=== PATIENT | male | born 1955 | race Caucasian/White ===

== ENCOUNTER 2017-05-14 09:57 | Inpatient (IN) | payer OTHER ==
[~2017-05-14] VITALS: Ht 172.7 cm; Wt 190.2 kg
[~2017-05-14 09:57] MED LIST: CORDARONE200 MG/TAB PO; COUMADIN 5MG5 MG/TAB PO; GLUCOPHAGE500 MG/TAB PO; LASIX 20MG TABL20 MG PO; LASIX 40MG TABL40 MG PO; LOPRESSOR 550 MG/TAB PO; MULTIPLE VITAMI1 TAB PO; PEPCID AC20 MG PO; VITAMIN D31000 IU PO; WELLBUTRIN 100100 MG; WELLBUTRIN SR150 M1 PO; ZESTORETIC 12.51 TA1 PO; ZYLOPRIM 300MG300 MG PO; ZYRTEC 10MG10 MG PO
[2017-05-14] MEDS ORDERED: ELIQUIS 5MG PO (10:45)
[2017-05-14] MEDS ORDERED: VASCEPA1 GM PO (10:46)
[2017-05-14] MEDS ORDERED: VITAMIN FLUSH-F1 CAP PO (10:47)
[2017-05-14 10:50] LABS: HEMATOCRIT 45.8 % (42.0-52.0); HEMOGLOBIN 15.7 g/dl (13.5-18.0); MEAN CELL VOLUME 87 fl (80.0-100.0); MEAN CORPUSCULAR HEMOGLOBIN 30 pg (27.0-31.0); MEAN CORPUSCULAR HGB CONC 34 g/dl (33.0-37.0); MEAN PLATELET VOLUME 10.8 fl (7.4-10.4); PLATELET COUNT 221 K/mm3 (130-400); RED BLOOD COUNT 5.29 M/mm3 (4.20-5.60); REDCELL DISTRIBUTION WIDTH-CV 13.6 % (11.5-14.5); WHITE BLOOD COUNT 16.4 K/mm3 (4.8-10.8)
[2017-05-14 10:52] LABS: INR 1.1 (0.8-3.0); PROTHROMBIN TIME 12.4 SECONDS (9.7-12.8)
[2017-05-14 11:03] LABS: ADJUSTED CALCIUM 9.3 mg/dL (8.4-10.2); ALANINE AMINOTRANSFERASE 26 U/L (21-72); ALBUMIN 3.8 gm/dL (3.5-5.0); ALKALINE PHOSPHATASE 93 U/L (50-136); ANION GAP 14 mmol/L (7-16); BLOOD UREA NITROGEN 21 mg/dL (9-20); CALCIUM 9.1 mg/dL (8.4-10.2); CARBON DIOXIDE 17 mmol/L (22-30); CHLORIDE 106 mmol/L (98-107); CREATINE KINASE 174 U/L (55-170); CREATININE, serum 1.25 mg/dL (0.66-1.25); GLUCOSE 146 mg/dL (74-106); POTASSIUM 3.5 mmol/L (3.4-5.0); SODIUM 137 mmol/L (137-145); TOTAL PROTEIN 7.9 gm/dL (6.4-8.2)
[2017-05-14 11:12] LABS: B-TYPE NATRIURETIC PEPTIDE 5560 pg/mL (0-125)
[2017-05-14 11:13] LABS: TROPONIN-I < 0.012 ng/mL (0.000-0.034)
[2017-05-14 11:16] LABS: C-REACTIVE PROTEIN 24.8 mg/dL (0.0-0.9)
[2017-05-14 11:47] LABS: BAND 30 % (0-10); BASOPHIL 1 % (0-2); METAMYELOCYTE 1 % (0-0); MYELOCYTE 1 % (0-0); NEUTROPHILS 54 % (42.0-75.2); PLATELET ESTIMATE NORMAL (NORMAL); TOTAL CELLS COUNTED 100
[2017-05-14 11:48] LABS: ADD PATHOLOGY DIFF REVIEW YES
[2017-05-14 17:21] VITALS: BP 103/79; PULSE 115; TEMP 97.5
[2017-05-14 20:51] VITALS: BP 102/60; PULSE 104; TEMP 98.4
[2017-05-15 00:36] VITALS: BP 90/43; PULSE 98; TEMP 98.9
[2017-05-15 04:37] VITALS: BP 93/60; PULSE 88; TEMP 97.9
[2017-05-15 07:25] VITALS: BP 107/68; PULSE 88; TEMP 97.8
[2017-05-15 08:34] LABS: PATHOLOGY DIFF REVIEW OK
[2017-05-15 09:49] LABS: HEMATOCRIT 41.3 % (42.0-52.0); HEMOGLOBIN 14.1 g/dl (13.5-18.0); MEAN CELL VOLUME 88 fl (80.0-100.0); MEAN CORPUSCULAR HEMOGLOBIN 30 pg (27.0-31.0); MEAN CORPUSCULAR HGB CONC 34 g/dl (33.0-37.0); MEAN PLATELET VOLUME 10.1 fl (7.4-10.4); PLATELET COUNT 221 K/mm3 (130-400); RED BLOOD COUNT 4.67 M/mm3 (4.20-5.60); REDCELL DISTRIBUTION WIDTH-CV 13.8 % (11.5-14.5); WHITE BLOOD COUNT 15.8 K/mm3 (4.8-10.8)
[2017-05-15 09:55] LABS: ADD PATHOLOGY DIFF REVIEW NO
[2017-05-15 10:03] LABS: ADJUSTED CALCIUM 8.6 mg/dL (8.4-10.2); ALBUMIN 3.2 gm/dL (3.5-5.0); BILIRUBIN,TOTAL 0.9 mg/dL (0.0-1.0); CREATININE, serum 1.18 mg/dL (0.66-1.25); POTASSIUM 3.6 mmol/L (3.4-5.0); TOTAL PROTEIN 6.8 gm/dL (6.4-8.2)
[2017-05-15 10:20] LABS: BAND 12 % (0-10); EOSINOPHIL 1 % (0-4); METAMYELOCYTE 1 % (0-0); NEUTROPHILS 64 % (42.0-75.2); PLATELET ESTIMATE NORMAL (NORMAL); TOTAL CELLS COUNTED 100
[2017-05-15 12:23] VITALS: BP 91/48; PULSE 79; TEMP 97.9
[2017-05-15 16:02] VITALS: BP 107/60; PULSE 87; TEMP 100.3
[2017-05-15 21:49] VITALS: BP 110/71; PULSE 93; TEMP 98.2
[2017-05-16 00:49] VITALS: BP 106/88; PULSE 77; TEMP 97.8
[2017-05-16 04:47] VITALS: BP 102/56; PULSE 88; TEMP 97.4
[2017-05-16 05:18] LABS: BASO # 0.1 (0.0-0.2); BASO % 0.6 % (0.0-2.0); EOS # 0.2 (0.0-0.7); EOS % 1.7 % (0-4.0); GRAN # 10.2 (1.4-6.5); GRAN % 73.7 % (42.2-75.2); HEMATOCRIT 40.7 % (42.0-52.0); HEMOGLOBIN 13.5 g/dl (13.5-18.0); LYMPH # 1.7 (1.2-3.4); LYMPH % 12.1 % (20.0-51.0); MEAN CELL VOLUME 91 fl (80.0-100.0); MEAN CORPUSCULAR HEMOGLOBIN 30 pg (27.0-31.0); MEAN CORPUSCULAR HGB CONC 33 g/dl (33.0-37.0); MEAN PLATELET VOLUME 10.4 fl (7.4-10.4); MONO # 0.9 (0.1-0.6); MONO % 6.4 % (1.7-9.3); PLATELET COUNT 234 K/mm3 (130-400); RED BLOOD COUNT 4.48 M/mm3 (4.20-5.60); WHITE BLOOD COUNT 13.9 K/mm3 (4.8-10.8)
[2017-05-16 05:46] LABS: ADJUSTED CALCIUM 8.7 mg/dL (8.4-10.2); ALBUMIN 3.2 gm/dL (3.5-5.0); BILIRUBIN,TOTAL 0.6 mg/dL (0.0-1.0); CALCIUM 8.1 mg/dL (8.4-10.2); CREATININE, serum 1.33 mg/dL (0.66-1.25); POTASSIUM 4.1 mmol/L (3.4-5.0); TOTAL PROTEIN 6.7 gm/dL (6.4-8.2)
[2017-05-16 06:13] LABS: C-REACTIVE PROTEIN 25.4 mg/dL (0.0-0.9)
[2017-05-16 08:34] VITALS: BP 118/62; PULSE 95; TEMP 98.5
[2017-05-16 11:25] VITALS: BP 100/68; PULSE 85; TEMP 98.5
[2017-05-16 16:23] VITALS: BP 119/60; PULSE 91; TEMP 99.3
[2017-05-16 19:54] VITALS: BP 86/54; PULSE 83; TEMP 98.5
[2017-05-17 00:30] VITALS: BP 129/89; PULSE 93; TEMP 97.8
[2017-05-17 04:49] LABS: HEMATOCRIT 40.3 % (42.0-52.0); HEMOGLOBIN 13.4 g/dl (13.5-18.0); MEAN CELL VOLUME 89 fl (80.0-100.0); MEAN CORPUSCULAR HEMOGLOBIN 30 pg (27.0-31.0); MEAN CORPUSCULAR HGB CONC 33 g/dl (33.0-37.0); MEAN PLATELET VOLUME 10.1 fl (7.4-10.4); PLATELET COUNT 319 K/mm3 (130-400); RED BLOOD COUNT 4.51 M/mm3 (4.20-5.60); WHITE BLOOD COUNT 14.4 K/mm3 (4.8-10.8)
[2017-05-17 04:52] LABS: ADD PATHOLOGY DIFF REVIEW NO
[2017-05-17 05:10] LABS: CALCIUM 8.3 mg/dL (8.4-10.2); CREATININE, serum 1.04 mg/dL (0.66-1.25); POTASSIUM 4.3 mmol/L (3.4-5.0)
[2017-05-17 05:15] LABS: BAND 21 % (0-10); EOSINOPHIL 3 % (0-4); NEUTROPHILS 55 % (42.0-75.2); PLATELET ESTIMATE NORMAL (NORMAL); TOTAL CELLS COUNTED 100
[2017-05-17 05:16] LABS: VANCOMYCIN TROUGH 22.12 ug/mL (7.00-20.00)
[2017-05-17 05:25] VITALS: BP 109/63; PULSE 80; TEMP 97.7
[2017-05-17 07:45] VITALS: BP 134/74; PULSE 99; TEMP 98.8
[2017-05-17 12:47] VITALS: BP 84/57; PULSE 75; TEMP 98.5
[2017-05-17 15:24] VITALS: BP 106/64; PULSE 76; TEMP 98.6
[2017-05-17 21:17] VITALS: BP 118/59; PULSE 81; TEMP 98.2
[2017-05-18] VITALS (7 sets, daily range): BP systolic 94–123; BP diastolic 50–64; PULSE 75–99; TEMP 98–98.8
[2017-05-18 08:47] LABS: HEMATOCRIT 38.1 % (42.0-52.0); HEMOGLOBIN 12.6 g/dl (13.5-18.0); MEAN CELL VOLUME 91 fl (80.0-100.0); MEAN CORPUSCULAR HEMOGLOBIN 30 pg (27.0-31.0); MEAN CORPUSCULAR HGB CONC 33 g/dl (33.0-37.0); MEAN PLATELET VOLUME 10.2 fl (7.4-10.4); PLATELET COUNT 304 K/mm3 (130-400); RED BLOOD COUNT 4.19 M/mm3 (4.20-5.60); REDCELL DISTRIBUTION WIDTH-CV 14.1 % (11.5-14.5); WHITE BLOOD COUNT 10.4 K/mm3 (4.8-10.8)
[2017-05-18 08:51] LABS: ADD PATHOLOGY DIFF REVIEW NO
[2017-05-18 08:59] LABS: CALCIUM 8.4 mg/dL (8.4-10.2); CREATININE, serum 1.08 mg/dL (0.66-1.25)
[2017-05-18 09:23] LABS: BAND 15 % (0-10); BASOPHIL 1 % (0-2); EOSINOPHIL 4 % (0-4); NEUTROPHILS 64 % (42.0-75.2); PLATELET ESTIMATE NORMAL (NORMAL); TOTAL CELLS COUNTED 100
[2017-05-19 03:45] VITALS: BP 98/54; PULSE 86; TEMP 99.1
[2017-05-19] MEDS ORDERED: DIFLUCAN150 MG PO (08:16)
[2017-05-19] MEDS ORDERED: CLEOCIN HC150 MG/CAP PO (08:17)
[2017-05-19] MEDS ORDERED: NORCO 325 MG-7.1 TAB PO (08:20)
[2017-05-19 08:30] VITALS: BP 123/72; PULSE 78; TEMP 98.4
[2017-05-19] MEDS ORDERED: PROBIOTIC ACID1 EAC3 PO (10:03)
== END 2017-05-19 13:00 | disposition home health service (06) | DRG 872 ==
LOC: COL.ER 09:57 → MEDICAL 11:52 → SURG 05-15 10:47 → MEDICAL 05-15 10:47
PROVIDERS: Emergency Medicine; Internal Medicine
DX: A41.9 Sepsis, unspecified organism (principal); L03.115 Cellulitis of right lower limb; Z68.44 Body mass index [BMI] 60.0-69.9, adult; G47.33 Obstructive sleep apnea (adult) (pediatric); E66.01 Morbid (severe) obesity due to excess calories; I48.0 Paroxysmal atrial fibrillation; R73.03 Prediabetes; F32.9 Major depressive disorder, single episode, unspecified; Z79.02 Long term (current) use of antithrombotics/antiplatelets; B35.3 Tinea pedis; R19.7 Diarrhea, unspecified; R11.2 Nausea with vomiting, unspecified
CPT/HCPCS: 99223-AI; 99232-AI; 99233-AI; 99239; J0692; J2405; J3370; J7030; J7040; J7050

== ENCOUNTER → 2017-12-22 | Outpatient (CLI) | payer OTHER ==
[~2017-12-22] VITALS: Ht 172.7 cm; Wt 184.4 kg
[~2017-12-22] MED LIST changes: +CLEOCIN HC150 MG/CAP PO; +DIFLUCAN150 MG PO; +ELIQUIS 5MG PO; +MULTIPLE VITAMI1 CAP PO; -MULTIPLE VITAMI1 TAB PO; +NORCO 325 MG-7.1 TAB PO; +PEPCID 20MG TAB20 MG PO; +PROBIOTIC ACID1 EAC3 PO; +VASCEPA1 GM PO; +VITAMIN D32000 I1 PO; +VITAMIN FLUSH-F1 CAP PO
[2017-12-22 10:19] VITALS: BP 129/92; PULSE 89
[2017-12-22 11:43] VITALS: BP 115/61; PULSE 87
[2017-12-22 11:44] VITALS: BP 103/58; PULSE 83
[2017-12-22 11:45] VITALS: BP 111/57; PULSE 86
== END ==
LOC: COL.CARD 09:21
DX: R06.02 Shortness of breath (principal)
CPT/HCPCS: A9502; J2785

== ENCOUNTER 2018-01-26 06:30 | Day surgery (SDC) | payer OTHER ==
[~2018-01-26] VITALS: Ht 172.7 cm; Wt 188.6 kg
[2018-01-26] VITALS (7 sets, daily range): BP systolic 95–119; BP diastolic 60–86; PULSE 16–76; TEMP 97.7
[~2018-01-26 06:30] MED LIST changes: -VITAMIN D32000 I1 PO; +Vitamin D3 PO
[2018-01-26] MEDS ORDERED: PRINIVIL20 MG PO (06:54)
[2018-01-26 07:02] LABS: HEMATOCRIT 49.8 % (42.0-52.0); HEMOGLOBIN 16.5 g/dl (13.5-18.0); MEAN CELL VOLUME 91 fl (80.0-100.0); MEAN CORPUSCULAR HEMOGLOBIN 30 pg (27.0-31.0); MEAN CORPUSCULAR HGB CONC 33 g/dl (33.0-37.0); MEAN PLATELET VOLUME 9.4 fl (7.4-10.4); PLATELET COUNT 218 K/mm3 (130-400); RED BLOOD COUNT 5.48 M/mm3 (4.20-5.60); REDCELL DISTRIBUTION WIDTH-CV 13.2 % (11.5-14.5)
[2018-01-26 07:06] LABS: INR 1.2 (0.8-3.0); PROTHROMBIN TIME 14.4 SECONDS (9.7-12.8)
[2018-01-26 07:07] LABS: POTASSIUM 4.6 mmol/L (3.4-5.0)
[2018-01-26 07:42] LABS: THYROID STIMULATING HORMONE 6.33 uIU/mL (0.465-4.680)
== END 2018-01-26 13:57 | disposition home or self-care (01) ==
LOC: COL.CAR 06:30
PROVIDERS: Internal Medicine Interventional Cardiology
DX: I48.0 Paroxysmal atrial fibrillation (principal); R60.0 Localized edema; L81.8 Other specified disorders of pigmentation; E66.01 Morbid (severe) obesity due to excess calories; G47.33 Obstructive sleep apnea (adult) (pediatric); I10 Essential (primary) hypertension; G89.29 Other chronic pain; M10.9 Gout, unspecified; R73.03 Prediabetes; Z88.3 Allergy status to other anti-infective agents; Z79.01 Long term (current) use of anticoagulants; Z68.44 Body mass index [BMI] 60.0-69.9, adult; Z83.3 Family history of diabetes mellitus
CPT/HCPCS: G9654; J2704; J3010; J7030

== ENCOUNTER 2019-10-04 11:41 | Day surgery (SDC) | payer OTHER ==
[~2019-10-04] VITALS: Ht 172.7 cm; Wt 182.9 kg
[~2019-10-04 11:41] MED LIST changes: +PRINIVIL20 MG PO
[2019-10-04 12:24] VITALS: BP 120/88; PULSE 83; TEMP 97.6
[2019-10-04] MEDS ORDERED: VITAMIND3 5000 PO (12:36)
[2019-10-04] MEDS ORDERED: MULTIPLE VITAMI1 CAP PO (12:36)
[2019-10-04] MEDS ORDERED: OZEMPIC0.25 MG/0. SQ (12:37)
[2019-10-04] MEDS ORDERED: PRAVACHOL 20MG20 MG PO (12:56)
[2019-10-04] MEDS ORDERED: CORDARONE200 MG/TAB PO (12:57)
[2019-10-04 13:00] VITALS: BP 103/56; PULSE 77
--- NOTE | 2019-10-04 13:00 | NUR ---
Patient returns to room 1 per cart from surgery accompanied by Cherie ALVAREZ after having colonoscopy and is awake and alert. On oxygen at 3L per nasal cannula. Denies abdominal pain or nausea. States that his abdomen feels bloated but no pain. Patient drinking orange juice. IV fluids infusing.
[2019-10-04 13:15] VITALS: BP 101/63; PULSE 59
--- NOTE | 2019-10-04 13:15 | NUR ---
Sats 96% on 3L per nasal cannula. Continues to rest without complaints.
[2019-10-04 13:19] VITALS: TEMP 97.5
[2019-10-04 13:30] VITALS: BP 104/63; PULSE 64
--- NOTE | 2019-10-04 13:30 | NUR ---
Eating muffin and drinking Sprite. Oxygen removed and room air sats 93%.
--- NOTE | 2019-10-04 13:40 | NUR ---
IV discontinued and site is free of redness. Patient dresses self.
--- NOTE | 2019-10-04 13:49 | NUR ---
Given dismissal instructions and voices understanding of home cares and follow up as needed. No follow up scheduled at this time.
--- NOTE | 2019-10-04 13:53 | NUR ---
Patient dismissed to home driven by friend and taken to the front door per wheelchair and assisted into car by this RN with instructions in hand.
== END 2019-10-04 13:53 | disposition home or self-care (01) ==
LOC: SDCO 11:41
DX: Z12.11 Encounter for screening for malignant neoplasm of colon (principal); M10.9 Gout, unspecified; I48.91 Unspecified atrial fibrillation; G47.33 Obstructive sleep apnea (adult) (pediatric); E03.9 Hypothyroidism, unspecified; I11.0 Hypertensive heart disease with heart failure; I50.9 Heart failure, unspecified; E78.5 Hyperlipidemia, unspecified; E66.01 Morbid (severe) obesity due to excess calories; Z68.44 Body mass index [BMI] 60.0-69.9, adult; G89.29 Other chronic pain; F32.9 Major depressive disorder, single episode, unspecified; E11.9 Type 2 diabetes mellitus without complications; Z79.01 Long term (current) use of anticoagulants; Z80.0 Family history of malignant neoplasm of digestive organs; Z88.3 Allergy status to other anti-infective agents
CPT/HCPCS: J2704; J7030

== ENCOUNTER 2020-05-27 14:42 | Inpatient (IN) | payer OTHER ==
[~2020-05-27] VITALS: Ht 172.7 cm; Wt 175.2 kg
[2020-05-27] VITALS (152 sets, daily range): BP systolic 109; BP diastolic 68–69; PULSE 93–97; TEMP 97.7–97.8; O2SAT 91–100
[~2020-05-27 14:42] MED LIST changes: +OZEMPIC0.25 MG/0. SQ; +PRAVACHOL 20MG20 MG PO; +VITAMIND3 5000 PO
[2020-05-27 15:45] LABS: BASO # 0.1 (0.0-0.2); BASO % 0.5 % (0.0-2.0); EOS # 0.2 (0.0-0.7); EOS % 1.4 % (0-4.0); GRAN # 8.6 (1.4-6.5); GRAN % 69.2 % (42.2-75.2); HEMATOCRIT 51.3 % (42.0-52.0); HEMOGLOBIN 16.6 g/dl (13.5-18.0); LYMPH # 2.6 (1.2-3.4); LYMPH % 20.9 % (20.0-51.0); MEAN CELL VOLUME 89 fl (80.0-100.0); MEAN CORPUSCULAR HEMOGLOBIN 29 pg (27.0-31.0); MEAN CORPUSCULAR HGB CONC 32 g/dl (33.0-37.0); MEAN PLATELET VOLUME 9.9 fl (7.4-10.4); MONO # 0.9 (0.1-0.6); MONO % 7.4 % (1.7-9.3); PLATELET COUNT 243 K/mm3 (130-400); RED BLOOD COUNT 5.79 M/mm3 (4.20-5.60); REDCELL DISTRIBUTION WIDTH-CV 13.6 % (11.5-14.5)
[2020-05-27 15:56] LABS: ALBUMIN 4.5 gm/dL (3.5-5.0); BILIRUBIN,TOTAL 1.1 mg/dL (0.0-1.0); CALCIUM 9.8 mg/dL (8.4-10.2); CREATININE, serum 1.56 (0.66-1.25); POTASSIUM 4.9 mmol/L (3.4-5.0); TOTAL PROTEIN 8.5 gm/dL (6.4-8.2)
[2020-05-27 16:02] LABS: ARTERIAL BLD GAS O2 SATURATION 91.1 % (92-100); ARTERIAL BLOOD GAS BASE EXCESS -3.2 (-2-2); ARTERIAL BLOOD GAS HCO3 19.1 meq/L (22-26); ARTERIAL BLOOD GAS PCO2 28.3 mmHg (35-45); ARTERIAL BLOOD GAS PO2 61.2 mmHg (80-100); ARTERIAL BLOOD GAS pH 7.45 (7.35-7.45)
--- NOTE | 2020-05-27 19:18 | NUR ---
Received report from ED nurse, ANTONIO Bo.
--- NOTE | 2020-05-27 19:35 | NUR ---
Patient arrives to ICU room 7 via ED stretcher. Patient able to ambulate to ICU bed with standby assistance. Initial vitals within normal limits; denies the presence of pain or discomfort. Patient arrives wearing 2L oxygen via oxymask; breathing is regular and unlabored, although slightly tachypneic with activity. During assessment, bilateral lower extremities are noted to be intact although scaling/flaking with dusky brown discoloration. Bilateral feet are also scaled/flaked with thick white crust. A red rash is noted to the coccyx; skin is blanchable and intact. Some scattered abrasions/scabs noted to the abdomen. Patient provided with sandwich box and water. Attempted to use urinal with no success. No further needs noted at this time. Will continue to monitor.
[2020-05-27] MEDS ORDERED: FARXIGA5 PO (20:43)
[2020-05-28] VITALS (485 sets, daily range): BP systolic 96–126; BP diastolic 54–84; PULSE 95–104; TEMP 97.6–98.1; O2SAT 85–100
[2020-05-28 00:11] LABS: COLLECTION METHOD CLEAN CATCH
[2020-05-28 00:24] LABS: MUCOUS Present /lpf; PH 5 (5-8); SQUAMOUS EPITHELIAL 0-2 /hpf; URINE APPEARANCE Hazy; URINE BACTERIA None Seen /hpf; URINE BILIRUBIN Negative (NEGATIVE); URINE BLOOD Negative (NEGATIVE); URINE COLOR Yellow; URINE GLUCOSE 1+ (NEGATIVE); URINE KETONE Trace (NEGATIVE); URINE LEUKOCYTE ESTERASE Negative (NEGATIVE); URINE NITRATE Negative (NEGATIVE); URINE PROTEIN(semi-quant) Negative (NEGATIVE); URINE RBC 0-2 /hpf; URINE UROBILINOGEN Negative (NEGATIVE)
[2020-05-28 06:28] LABS: BASO # 0.1 (0.0-0.2); BASO % 0.5 % (0.0-2.0); EOS # 0.2 (0.0-0.7); EOS % 1.5 % (0-4.0); GRAN # 8.1 (1.4-6.5); GRAN % 73.3 % (42.2-75.2); HEMATOCRIT 48.3 % (42.0-52.0); HEMOGLOBIN 15.5 g/dl (13.5-18.0); LYMPH # 1.8 (1.2-3.4); LYMPH % 16.7 % (20.0-51.0); MEAN CELL VOLUME 89 fl (80.0-100.0); MEAN CORPUSCULAR HEMOGLOBIN 29 pg (27.0-31.0); MEAN CORPUSCULAR HGB CONC 32 g/dl (33.0-37.0); MEAN PLATELET VOLUME 10.2 fl (7.4-10.4); MONO # 0.8 (0.1-0.6); MONO % 7.5 % (1.7-9.3); PLATELET COUNT 219 K/mm3 (130-400); RED BLOOD COUNT 5.43 M/mm3 (4.20-5.60); REDCELL DISTRIBUTION WIDTH-CV 13.8 % (11.5-14.5)
[2020-05-28 06:33] LABS: CALCIUM 8.9 mg/dL (8.4-10.2); CREATININE, serum 1.23 (0.66-1.25); MAGNESIUM 2.2 mg/dL (1.6-2.3); POTASSIUM 4.5 mmol/L (3.4-5.0)
--- NOTE | 2020-05-28 07:29 | NUR ---
Report given to ANTONIO Hammond.
--- NOTE | 2020-05-28 09:15 | NUR ---
Blood Donor Recruiter met with patient to discuss discharge planning. Patient lives alone in [place] and sees Dr. Darby for primary care. Patient has most of his medications mailed to him by [facility] but also obtains medications from [facility] as needed. Patient uses a CPAP at night and also has a rollator that he uses when he needs to walk long distances. Patient states he does not use the rollator at home or at work. 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 Patient reports that he is independent with ADLS and plans to return home upon discharge. Patient does not have Advance Directives and is not interested in designating a DPOA-HC at this time. Patient is but still keeps in contact with his two step children. Patient's parents are and he reports he has two brothers and five sisters. Patient states his emergency contact is his brother, Franklin (ph#[phone]). Patient states his car is at a [facility] near his job and may need assistance getting back to his car upon discharge. Patient states he would be able to pay for an Uber if needed. SW will continue to follow.
--- NOTE | 2020-05-28 19:20 | NUR ---
To room 348 via WC, all belongings sent up with patient. Patient refuses to wear the hospital CPAP and didn't want it taken up to room. Rain MENON notified and states "ok".
--- NOTE | 2020-05-28 22:23 | NUR ---
TAKES SCHEDULED HS MEDS AT THIS TIME. REPORTS HEADACHE, TYLENOL 650MG PO GIVEN. HAS SL TO RIGHT HAND, FLUSHED WELL. INDEPENDENT IN ROOM. HS SNACK GIVEN. IZ=[id number].
[2020-05-29] VITALS (7 sets, daily range): BP systolic 80–133; BP diastolic 44–74; PULSE 72–112; TEMP 97.7–99.2
--- NOTE | 2020-05-29 03:00 | NUR ---
BED LINENS AND GOWN CHANGED DUE TO SWEATING, DENIES LOW BLOOD SUGAR.
[2020-05-29 09:26] LABS: BASO % 0.3 % (0.0-2.0); EOS # 0.2 (0.0-0.7); EOS % 2.4 % (0-4.0); GRAN # 7.8 (1.4-6.5); GRAN % 77.1 % (42.2-75.2); HEMATOCRIT 47.3 % (42.0-52.0); HEMOGLOBIN 15.1 g/dl (13.5-18.0); LYMPH # 1.6 (1.2-3.4); LYMPH % 15.6 % (20.0-51.0); MEAN CELL VOLUME 90 fl (80.0-100.0); MEAN CORPUSCULAR HEMOGLOBIN 29 pg (27.0-31.0); MEAN CORPUSCULAR HGB CONC 32 g/dl (33.0-37.0); MEAN PLATELET VOLUME 9.9 fl (7.4-10.4); MONO # 0.4 (0.1-0.6); MONO % 4.1 % (1.7-9.3); PLATELET COUNT 206 K/mm3 (130-400); RED BLOOD COUNT 5.28 M/mm3 (4.20-5.60); REDCELL DISTRIBUTION WIDTH-CV 13.6 % (11.5-14.5)
[2020-05-29 09:34] LABS: CALCIUM 9.1 mg/dL (8.4-10.2); CREATININE, serum 1.03 (0.66-1.25); POTASSIUM 4.5 mmol/L (3.4-5.0)
--- NOTE | 2020-05-29 18:37 | NUR ---
PATIENT CURRENTLY SITTING UP IN THE BEDSIDE CHAIR WITH THE TV ON AND HIS DINNER TRAY. PATIENT REQUESTED PRN TYLENOL AND COUGH DROP. PATIENT DENIES ANY OTHER NEEDS AT THIS TIME. WILL REPORT OFF TO THE ONCOMING NURSE.
--- NOTE | 2020-05-29 20:00 | NUR ---
Bedside shift report received, assumed care for retail shift manager. A&Ox3. Assessment complete. VS have remained stable. Denies pain/nausea. Shortness of breath with activity. INT to right hand flushes without difficulty. Plan of care discussed for this shift to include HS meds/calling for needs. Verbalizes understanding. Call light in reach. Will continue to monitor.
[2020-05-30 04:33] VITALS: BP 119/62; PULSE 97; TEMP 97.7
[2020-05-30 06:43] LABS: BASO # 0.1 (0.0-0.2); BASO % 0.6 % (0.0-2.0); EOS # 0.2 (0.0-0.7); EOS % 2.7 % (0-4.0); GRAN # 6.6 (1.4-6.5); GRAN % 76.2 % (42.2-75.2); HEMATOCRIT 46.1 % (42.0-52.0); HEMOGLOBIN 14.8 g/dl (13.5-18.0); LYMPH # 1.2 (1.2-3.4); LYMPH % 13.5 % (20.0-51.0); MEAN CELL VOLUME 88 fl (80.0-100.0); MEAN CORPUSCULAR HEMOGLOBIN 28 pg (27.0-31.0); MEAN CORPUSCULAR HGB CONC 32 g/dl (33.0-37.0); MEAN PLATELET VOLUME 10.4 fl (7.4-10.4); MONO # 0.6 (0.1-0.6); MONO % 6.7 % (1.7-9.3); PLATELET COUNT 191 K/mm3 (130-400); RED BLOOD COUNT 5.22 M/mm3 (4.20-5.60); REDCELL DISTRIBUTION WIDTH-CV 13.5 % (11.5-14.5)
[2020-05-30 07:27] LABS: CALCIUM 8.9 mg/dL (8.4-10.2); CREATININE, serum 0.95 (0.66-1.25); POTASSIUM 4.3 mmol/L (3.4-5.0)
[2020-05-30 08:00] VITALS: BP 122/97; PULSE 110; TEMP 97.3
--- NOTE | 2020-05-30 11:00 | NUR ---
Patient has been doing well today. Requested tylenol for generalized aching. He walked in the hallway with PT. He is hoping to discharge today. Reminded him to do deep breathing and cough exercises. He has been independent in the room. No other changes at this time. Call light within reach. No complaints of nausea.
[2020-05-30] MEDS ORDERED: OMNICEF 300MG300 MG PO (11:08)
[2020-05-30] MEDS ORDERED: MUCUS RELIEF200 MG PO (11:09)
[2020-05-30] MEDS ORDERED: TOPROL XL 25MG25 MG PO (11:09)
[2020-05-30 11:43] VITALS: BP 108/70; PULSE 91; TEMP 97.5
--- NOTE | 2020-05-30 11:46 | NUR ---
PT SITTING IN CHAIR WATCHING TV ON ROOM AIR SPO2 92%, WALKED WITH RT APPROXIMATELY 25 FEET SPO2 86%, BACK TO ROOM SITTING, PT APPEARED DYSPNEIC W/DIFFICULTY CATCHING HIS BREATH. SPO2 82% WITH RECOVERY TO 90-91% AFTER A FEW MINUTES. PT DECLINED USING O2 @ THIS TIME WOULD LIKE TO SPEAK TO HIS TOW DRIVER NEXT WEEK FIRST. PT DOES UNDERSTAND THAT HOME O2 MAY BE NECESSARY AND IS OKAY WITH THAT. SOC SER NOTIFIED.
--- NOTE | 2020-05-30 14:04 | NUR ---
[facility] Update- Patient skilled for Oxygen but declined setup.
--- NOTE | 2020-05-30 15:45 | NUR ---
Patient is discharging home. All belongings packed up and sent with patient. He needed a taxi ride to his car. He did not have anyone else to pick him up. Explained he needs to call for his follow up appointments. He verbalized understanding. Explained he has prescriptions to maple syrup maker at [facility]. Copies of discharge instructions given to patient. No questions verbalized. Patient walked out via wheel chair by Jyothi BAINS.
== END 2020-05-30 15:45 | disposition home or self-care (01) | DRG 871 ==
LOC: COL.ER 14:42 → ICU 16:51 → SURG 16:51
PROVIDERS: Family Medicine; Physician Assistant; ADMIT Internal Medicine
DX: A41.9 Sepsis, unspecified organism (principal); J96.01 Acute respiratory failure with hypoxia; N17.9 Acute kidney failure, unspecified; Z68.43 Body mass index [BMI] 50.0-59.9, adult; Q21.1 Atrial septal defect; I48.92 Unspecified atrial flutter; I50.30 Unspecified diastolic (congestive) heart failure; E66.01 Morbid (severe) obesity due to excess calories; I95.9 Hypotension, unspecified; Z20.828 Contact with and (suspected) exposure to other viral communicable diseases; R53.81 Other malaise; I48.0 Paroxysmal atrial fibrillation; F32.9 Major depressive disorder, single episode, unspecified; G47.33 Obstructive sleep apnea (adult) (pediatric); I27.81 Cor pulmonale (chronic); G89.29 Other chronic pain; M54.9 Dorsalgia, unspecified
CPT/HCPCS: 99223-AI; 99231-AI; 99233-AI; 99239; A9284; J0696; J7030; J7120